=== PATIENT | male | born 1980 | race Hispanic/Latino ===

== ENCOUNTER 2020-12-03 10:59 | Emergency (ER) | payer BC, OTHER ==
[~2020-12-03] VITALS: Ht 185.4 cm; Wt 129.3 kg
[2020-12-03] MEDS ORDERED: DiphenhydrAMINE HCL 50 MG/ML VIAL ONE (11:06)
[2020-12-03] MEDS ORDERED: SOLU-MEDROL 125MG VIAL IM SCH (11:30)
[2020-12-03] MEDS ORDERED: FAMOTIDINE 20MG TAB PO SCH (11:30)
[2020-12-03] MEDS ORDERED: DiphenhydrAMINE HCL 50 MG/ML VIAL IM SCH (11:30)
[2020-12-03 12:07] VITALS: BP 133/72
[2020-12-03] MEDS ORDERED: FAMO-136 PO (13:08)
[2020-12-03] MEDS ORDERED: PRED20TA3 PO (13:08)
[2020-12-03] MEDS ORDERED: CETI1SOL17 PO (13:08)
[2020-12-03 14:02] VITALS: BP 129/79
== END 2020-12-03 14:04 | disposition left against medical advice (07) ==
LOC: EDH 10:59
DX: T78.3XXA Angioneurotic edema, initial encounter (principal); Z79.899 Other long term (current) drug therapy; X58.XXXA Exposure to other specified factors, initial encounter
CPT/HCPCS: 96372 ×2; 99284; J1200; J2930